=== PATIENT | female | born 1975 | race Caucasian/White ===

== ENCOUNTER 2018-09-02 03:18 | Day surgery (SDC) | payer OTHER ==
[~2018-09-02] VITALS: Ht 162.6 cm; Wt 80.2 kg
[2018-09-02] MEDS ORDERED: MORPHINE SULFATE 4 MG/ML, 1ML ONE ×2 (03:47→04:28)
[2018-09-02] MEDS ORDERED: ONDANSETRON 2MG/ML, 2ML ONE ×3 (03:47→15:48)
[2018-09-02] MEDS ORDERED: ONDANSETRON 2MG/ML, 2ML IVPush ONE (04:00)
[2018-09-02] MEDS ORDERED: SODIUM CHLORIDE FLUSH 10ML SYR IVF ONE (04:00)
[2018-09-02] MEDS ORDERED: FAMOTIDINE 20 MG/2 ML IVP ONE (04:00)
[2018-09-02] MEDS ORDERED: MAALOX/HYOSCYAMINE/LIDOCAINE 45 ML BTL PO ONE (04:00)
[2018-09-02] MEDS: MORPHINE SULFATE 4 MG/ML, 1ML IVPush PRN ×2 (04:04→04:35)
[2018-09-02 04:10] LABS: BASOPHILS # (AUTO) 0.11 x10^3/uL (0-0.1); BASOPHILS % (AUTO) 1 % (0-1); EOSINOPHILS # (AUTO) 0.75 x10^3/uL (0-0.4); EOSINOPHILS % (AUTO) 8 % (1-7); LYMPHOCYTES # (AUTO) 2.12 x10^3/uL (1-3.4); LYMPHOCYTES % (AUTO) 24 % (22-44); MD NO; MEAN CORPUSCULAR HEMOGLOBIN 21.6 pg (27.0-34.8); MEAN CORPUSCULAR HGB CONC 31.9 g/dL (32.4-35.8); MEAN CORPUSCULAR VOLUME 67.8 fL (80-100); MEAN PLATELET VOLUME 8.3 fL (7.4-10.4); MONOCYTES # (AUTO) 0.64 x10^3/uL (0.2-0.8); MONOCYTES % (AUTO) 7 % (2-9); NEUTROPHILS # (AUTO) 5.37 x10^3/uL (1.8-6.8); NEUTROPHILS % (AUTO) 60 % (42-75); PLATELET COUNT 717 x10^3/uL (130-400); RED BLOOD COUNT 5.02 x10^6/uL (3.82-5.3)
--- NOTE | 2018-09-02 04:10 | NUR ---
PT PLACED IN [facility]ITAL GOWN. PT PLACED ON VITALS MONITORS AND CARDIAC MONITORS. IV STARTED. ORDRED PAIN AND NAUSEA MEDS GIVEN PER EMAR. BILAT BEDRAILS UP. WILL CONTINUE TO MONITOR.
[2018-09-02 04:22] LABS: ALANINE AMINOTRANSFERASE 29 U/L (12-78); ALBUMIN 3.7 g/dL (3.4-5.0); ANION GAP 7 mmol/L (5-15); CALCIUM 8.7 mg/dL (8.5-10.1); CHLORIDE 109 mmol/L (98-107); CREATININE 0.68 mg/dL (0.55-1.02)
[2018-09-02 04:26] LABS: ALKALINE PHOSPHATASE 72 U/L (45-117); BILIRUBIN,TOTAL 0.3 mg/dL (0.2-1.0); TOTAL PROTEIN 7.6 g/dL (6.4-8.2)
[2018-09-02] MEDS ORDERED: MAALOX/HYOSCYAMINE/LIDOCAINE 45 ML BTL ONE (04:28)
[2018-09-02] MEDS ORDERED: FAMOTIDINE 20 MG/2 ML ONE (04:28)
--- NOTE | 2018-09-02 04:40 | NUR ---
PT BACK FROM US, STILL HAVING SEVERE ABD PAIN. PT MEDICATED WITH 2ND DOSE MORPHINE. WILL CONTINUE TO MONITOR.
--- NOTE | 2018-09-02 05:14 | NUR ---
Ethan corral in [facility] - 09/02/18 at 0515 by BLANCA PT REPORTS GREAT IMPROVEMENT IN PAIN, IS RESTING IN BED CALMLY AT THIS TIME.
--- NOTE | 2018-09-02 05:15 | NUR ---
PT REPORTS GREAT IMPROVEMENT IN PAIN, IS RESTING IN BED CALMLY AT THIS TIME.
[2018-09-02] MEDS ORDERED: POTASSIUM CHLORIDE 20 MEQ in SODIUM CHLORIDE 0.9% 1,000 ML IV ONE (05:39)
[2018-09-02] MEDS ORDERED: MORPHINE SULFATE 4 MG/ML, 1ML IVPush PRN ×2 (06:00→15:30)
[2018-09-02] MEDS ORDERED: SODIUM CHLORIDE FLUSH 10ML SYR IVF PRN (06:00)
[2018-09-02] MEDS ORDERED: ONDANSETRON 2MG/ML, 2ML IVPush PRN (06:00)
[2018-09-02] MEDS ORDERED: CEFOTETAN PMX 1GM/50ML 50 ML IV ONE (06:00)
[2018-09-02] MEDS ORDERED: VITAMIN D PO (06:10)
[2018-09-02] MEDS ORDERED: IRON TAB PO (06:10)
[2018-09-02] MEDS ORDERED: MULT-658 PO (06:10)
[2018-09-02] MEDS ORDERED: SERT50TA PO (06:10)
--- NOTE | 2018-09-02 06:16 | NUR ---
REPORT TO LORI VILLAR FOR ROOM [id number]
[2018-09-02] MEDS ORDERED: CEFOTETAN PMX 1GM/50ML 50 ML ONE (06:17)
[2018-09-02 06:32] VITALS: BP 119/77
[2018-09-02 07:37] VITALS: BP 112/74
[2018-09-02] MEDS: NS + 20MEQ KCL 1,000 ML IV SCH ×2 (08:12→19:30)
[2018-09-02 13:13] VITALS: BP 98/73
[2018-09-02] MEDS ORDERED: BUPIVACAINE 0.25% INFIL ONE (14:42)
[2018-09-02] MEDS ORDERED: FENTANYL PF 250 MCG/5ML ONE (14:54)
[2018-09-02] MEDS ORDERED: MIDAZOLAM 1 MG/ML, 2ML ONE (14:54)
[2018-09-02] MEDS ORDERED: DEXAMETHASONE 4 MG/ML, 1ML ONE (14:55)
[2018-09-02] MEDS ORDERED: SUCCINYLCHOLINE 20 MG/ML, 10ML ONE (14:57)
[2018-09-02] MEDS ORDERED: PROPOFOL 10 MG/ML, 20ML ONE (14:57)
[2018-09-02] MEDS ORDERED: GLYCOPYRROLATE 0.2MG/1ML, 5ML ONE (14:57)
[2018-09-02] MEDS ORDERED: NEOSTIGMINE 1 MG/ML, 10ML ONE (14:57)
[2018-09-02] MEDS ORDERED: KETOROLAC 30 MG/1 ML ONE (15:18)
[2018-09-02] MEDS ORDERED: HALOPERIDOL 5 MG/ML IV PRN (15:30)
[2018-09-02] MEDS ORDERED: ACETAMINOPHEN 325 MG TABLET PO PRN (15:30)
[2018-09-02] MEDS ORDERED: PROMETHAZINE 12.5 MG SUPP PR PRN (15:30)
[2018-09-02] MEDS ORDERED: hydrALAzine 20 MG/ML, 1ML IV PRN (15:30)
[2018-09-02] MEDS ORDERED: MEPERIDINE/PF 25MG/0.5ML IVPush PRN (15:30)
[2018-09-02] MEDS ORDERED: ONDANSETRON 2MG/ML, 2ML IV PRN ×2 (15:30→17:30)
[2018-09-02] MEDS ORDERED: MIDAZOLAM 1 MG/ML, 2ML IV PRN (15:30)
[2018-09-02] MEDS ORDERED: ALBUTEROL SULFATE 2.5 MG/3 ML NPPB PRN (15:30)
[2018-09-02] MEDS ORDERED: EPHEDRINE 50 MG/ML, 1ML IVPush PRN (15:30)
[2018-09-02] MEDS ORDERED: LABETALOL 5MG/ML, 20ML IV PRN (15:30)
[2018-09-02] MEDS ORDERED: ONDANSETRON ODT 8 MG PO PRN (15:30)
[2018-09-02] MEDS ORDERED: OXYcodone 5 MG/5 ML ORAL.SOL UDC PO PRN (15:30)
[2018-09-02] MEDS ORDERED: DIAZEPAM 5 MG/ML, 2ML IVPush PRN (15:30)
[2018-09-02] MEDS ORDERED: PROMETHAZINE 25 MG/ML, 1ML IV PRN (15:30)
[2018-09-02] MEDS ORDERED: FENTANYL PF 100 MCG/2ML ONE (15:48)
[2018-09-02] MEDS: FENTANYL PF 100 MCG/2ML IV PRN ×2 (15:51→16:02)
[2018-09-02] MEDS ORDERED: ACETAMINOPHEN 650 MG/20.3 ML UDC ONE (16:03)
[2018-09-02] MEDS ORDERED: OXYcodone 5 MG/5 ML ORAL.SOL UDC ONE (16:03)
[2018-09-02] MEDS ORDERED: HALOPERIDOL 5 MG/ML ONE (16:22)
[2018-09-02] MEDS ORDERED: D5%-LACTATED RINGERS 1,000 ML IV SCH (17:30)
[2018-09-02] MEDS ORDERED: morphine SULFATE 10 MG/ML, 1ML IV PRN (17:30)
[2018-09-02] MEDS ORDERED: LACTATED RINGERS 1,000 ML IV SCH (17:30)
[2018-09-02] MEDS ORDERED: OXYcodone/APAP 5/325MG TABLET PO PRN (17:30)
[2018-09-02 19:32] VITALS: BP 123/84
[2018-09-02] MEDS ORDERED: OXYC1TAB7 PO (20:13)
[2018-09-02 21:19] VITALS: BP 119/80
== END 2018-09-02 21:30 | disposition home or self-care (01) ==
LOC: SDC 05:39 → ED 05:53 → EDIP 05:54 → UNDOADMIN 05:54 → 4NOR 06:25 → EDIP 06:25 → UNDODISIN 21:30 → SDC 21:30
PROVIDERS: ATTEND Emergency Medicine
DX: K81.1 Chronic cholecystitis (principal); F32.9 Major depressive disorder, single episode, unspecified; D57.3 Sickle-cell trait; E66.9 Obesity, unspecified; Z68.30 Body mass index [BMI] 30.0-30.9, adult; Z88.1 Allergy status to other antibiotic agents; Z88.8 Allergy status to other drugs, medicaments and biological substances
CPT/HCPCS: 36415; 47562; 76700; 80053; 83690; 84703; 85025; 88304; 93005; 96374; 96375; 99285; J0330; J1100; J1885; J2250; J2270; J2405; J2704; J2710; J3010; J3480; J3490; J7120; G0378